=== PATIENT | male | born 2000 | race Caucasian/White ===

== ENCOUNTER 2019-08-08 15:25 | Outpatient (CLI) | payer OTHER, SELFPAY ==
--- NOTE | 2019-08-08 15:45 | XR_ITS ---
WS: [id number] XR chest 2V* [id number] REASON FOR EXAM: SOB AND COUGH FINDINGS: The heart and mediastinal interfaces were normal. Comparisons were made to January 29, 2015. The lung wei are well aerated. There is no pneumonia, pleural effusion, pulmonary edema, no mass e ffect. The hilum and apices are normal. No osseous abnormalities. XR/XR chest 2V* [id number] IMPRESSION: Negative chest for active pathology.
== END 2019-08-08 15:26 | disposition home or self-care (01) ==
LOC: RAD 15:37
PROVIDERS: Family Provider Family Medicine; PCP Family Medicine; Visit Provider Nurse Practitioner Family
DX: R06.02 Shortness of breath (principal); R05 Cough
CPT/HCPCS: 71046